=== PATIENT | female | born 2000 | race Two or more races ===

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

== ENCOUNTER 2019-01-05 19:52 | Emergency (ER) | payer SELFPAY ==
[~2019-01-05] VITALS: Ht 157.5 cm; Wt 73.9 kg
[2019-01-05 20:06] VITALS: BP 123/73
[2019-01-05 20:43] LABS: APPEARANCE,URINE Clear (CLEAR); BILIRUBIN,URINE Negative (NEGATIVE); BLOOD, URINE Negative Ery/uL (NEGATIVE); COLOR,URINE Yellow (YELLOW); KETONES,URINE Negative (NEGATIVE); LEUKOCYTE ESTERASE ,URINE Negative (NEGATIVE); NITRITE, URINE Negative (NEGATIVE); PH,URINE 7.5 (5.0-8.0); PROTEIN,URINE Negative (NEGATIVE); UGLUCOSE Negative (NEGATIVE)
== END 2019-01-05 22:03 | disposition home or self-care (01) ==
LOC: ER 19:54
DX: R30.0 Dysuria (principal)
CPT/HCPCS: 81000-TC; 84703-TC